=== PATIENT | female | born 1985 | race Caucasian/White ===

== ENCOUNTER 2017-10-20 12:04 | Inpatient (IN) | payer BC ==
[~2017-10-20] VITALS: Ht 167.6 cm; Wt 81.2 kg
[2017-10-20] MEDS ORDERED: LR 1,000 ML IV ONE (12:56)
[2017-10-20] MEDS ORDERED: LR 1,000 ML IV SCH (12:56)
[2017-10-20] MEDS ORDERED: OXYTOCIN/NORMAL SALINE 1,000 ML IV SCH ×2 (12:56→16:13)
[2017-10-20] MEDS ORDERED: NALBUPHINE HCL 10 MG/ML AMP IVP PRN (13:00)
[2017-10-20] MEDS ORDERED: fentaNYL CITRATE/PF 100 MCG/2 ML AMP ONE (13:10)
[2017-10-20] MEDS ORDERED: OXYTOCIN/NORMAL SALINE 1,000 ML IV ONE ×2 (13:16→16:13)
[2017-10-20] MEDS ORDERED: LR 500 ML IV ONE (14:09)
[2017-10-20 14:13] LABS: BASOPHILS % (AUTO) 0.5 % (0.0-2.0); EOSINOPHILS # (AUTO) 0.1 K/uL (0.0-0.4); EOSINOPHILS % (AUTO) 0.8 % (0.0-4.0); HEMATOCRIT 33.5 % (36-48); LYMPHOCYTES # (AUTO) 1.6 K/uL (1.0-5.5); LYMPHOCYTES % (AUTO) 19.8 % (20.5-51.5); MEAN CORPUSCULAR HEMOGLOBIN 28 pg (27-31); MEAN CORPUSCULAR HGB CONC 33 % (32-36); MEAN CORPUSCULAR VOLUME 84 fL (79.0-98.0); MONOCYTES # (AUTO) 0.5 K/uL (0.0-1.0); MONOCYTES % (AUTO) 6.9 % (1.7-9.3); NEUTROPHILS # (AUTO) 5.8 K/uL (1.8-7.7); PLATELET COUNT (AUTO) 225 K/uL (130-430); RED BLOOD CELL COUNT(AUTO) 4.01 MIL/uL (4.2-6.2); RED CELL DISTRIBUTION WIDTH 14.8 % (9.0-15.0)
[2017-10-20] MEDS ORDERED: FENT2mCg/mL-ROPIVA0.2%/NS EPID 150 ML EP SCH (14:15)
[2017-10-20 15:11] VITALS: BP_SYST 133
[2017-10-20] MEDS ORDERED: ACETAMINOPHEN 325 MG TABLET PO PRN (16:15)
[2017-10-20] MEDS ORDERED: OXYCODONE/ACETAMINOPHEN 5-325 TABLET PO PRN ×2 (16:15)
[2017-10-20] MEDS ORDERED: LANOLIN 7 GM OINT. TP PRN (16:15)
[2017-10-20] MEDS ORDERED: DOCUSATE SODIUM 100 MG CAPSULE PO PRN (16:15)
[2017-10-20] MEDS ORDERED: HYDROCORTISONE 0.5%, 28.35 GM TOPICAL CREAM TP PRN (16:15)
[2017-10-20] MEDS ORDERED: GLYCERIN/WITCH HAZEL (TUCKS PADS) TP PRN (16:15)
[2017-10-20] MEDS ORDERED: MEASLES,MUMPS&RUBELLA VACC/PF 12500 UNIT/0.5 ML VIAL SUBQ PRN (16:15)
[2017-10-20] MEDS ORDERED: RHO(D) IMMUNE GLOBULIN/MALTOSE 1500 UNITS/1.3 ML (WINHRO) IM PRN (16:15)
[2017-10-20] MEDS ORDERED: METHYLERGONOVINE MALEATE 0.2 MG TABLET PO PRN (16:15)
[2017-10-20] MEDS ORDERED: ANUSOL 1 EA SUPP.RECT (PREPARATION H) RC PRN (16:15)
[2017-10-20] MEDS ORDERED: DERMOPLAST SPRAY TP PRN (16:15)
[2017-10-20] MEDS ORDERED: SENNOSIDES/DOCUSATE SODIUM 1 TAB TABLET(SENOKOT-S) PO PRN (16:15)
[2017-10-20] MEDS ORDERED: IBUPROFEN 600 MG TABLET ONE (20:07)
[2017-10-20] MEDS ORDERED: TEMAZEPAM 15 MG CAPSULE PO PRN (21:00)
[2017-10-21] MEDS: IBUPROFEN 600 MG TABLET PO SCH ×3 (00:07→14:14)
[2017-10-21 08:17] LABS: BASOPHILS % (AUTO) 0.4 % (0.0-2.0); EOSINOPHILS # (AUTO) 0.1 K/uL (0.0-0.4); EOSINOPHILS % (AUTO) 0.7 % (0.0-4.0); HEMATOCRIT 29.6 % (36-48); HEMOGLOBIN 9.6 g/dL (12.0-16.0); LYMPHOCYTES # (AUTO) 1.8 K/uL (1.0-5.5); LYMPHOCYTES % (AUTO) 16.6 % (20.5-51.5); MEAN CORPUSCULAR HEMOGLOBIN 27 pg (27-31); MEAN CORPUSCULAR HGB CONC 33 % (32-36); MEAN CORPUSCULAR VOLUME 84 fL (79.0-98.0); MONOCYTES # (AUTO) 0.7 K/uL (0.0-1.0); MONOCYTES % (AUTO) 6.5 % (1.7-9.3); NEUTROPHILS # (AUTO) 8.3 K/uL (1.8-7.7); NEUTROPHILS % (AUTO) 75.8 % (40.0-70.0); PLATELET COUNT (AUTO) 194 K/uL (130-430); RED BLOOD CELL COUNT(AUTO) 3.53 MIL/uL (4.2-6.2); RED CELL DISTRIBUTION WIDTH 14.8 % (9.0-15.0); WHITE BLOOD COUNT (AUTO) 10.9 K/uL (4.8-10.8)
== END 2017-10-21 20:23 | disposition home or self-care (01) | DRG 775 ==
LOC: SPU 12:04
PROVIDERS: ADMIT Obstetrics & Gynecology; ATTEND Obstetrics & Gynecology
PROC: 10E0XZZ Delivery of Products of Conception, External Approach (ICD-10-PCS; principal; 2017-10-20)
PROC: 10907ZC Drainage of Amniotic Fluid, Therapeutic from Products of Conception, Via Natural or Artificial Opening (ICD-10-PCS; 2017-10-20)
PROC: 3E0S3BZ Introduction of Anesthetic Agent into Epidural Space, Percutaneous Approach (ICD-10-PCS; 2017-10-20)
PROC: 00HU33Z Insertion of Infusion Device into Spinal Canal, Percutaneous Approach (ICD-10-PCS; 2017-10-20)
DX: O41.03X0 Oligohydramnios, third trimester, not applicable or unspecified (principal); O69.81X0 Labor and delivery complicated by cord around neck, without compression, not applicable or unspecified; Z3A.39 39 weeks gestation of pregnancy; Z37.0 Single live birth
CPT/HCPCS: 36415; 85025; 86592; 86886; 86900; 86901; J2590; J3010; J7120

== ENCOUNTER 2017-11-17 16:15 | Emergency (ER) | payer BC ==
[~2017-11-17] VITALS: Ht 167.6 cm; Wt 71.7 kg
[2017-11-17 16:55] VITALS: BP_SYST 94
--- NOTE | 2017-11-17 17:10 | NUR ---
Patient had orders placed while in triage, before being placed into room.
--- NOTE | 2017-11-17 17:30 | NUR ---
Patient to ultrasound via wheelchair from triage. Patient will go to room after she has ultrasound.
[2017-11-17 17:35] LABS: HEMATOCRIT 32.5 % (36-48); HEMOGLOBIN 10.6 g/dL (12.0-16.0); MEAN CORPUSCULAR HEMOGLOBIN 27 pg (27-31); MEAN CORPUSCULAR HGB CONC 32 % (32-36); MEAN CORPUSCULAR VOLUME 84 fL (79.0-98.0); PLATELET COUNT (AUTO) 442 K/uL (130-430); RED BLOOD CELL COUNT(AUTO) 3.86 MIL/uL (4.2-6.2); RED CELL DISTRIBUTION WIDTH 15.7 % (9.0-15.0); WHITE BLOOD COUNT (AUTO) 17.2 K/uL (4.8-10.8)
--- NOTE | 2017-11-17 17:55 | NUR ---
Patient placed into bed 7 by java [email or web address] technical lead.
--- NOTE | 2017-11-17 17:55 | NUR ---
Patient to ER via triage with c/o syncope after taking Cytotec. Patient is awake, alert and oriented in no acute distress. Patient slightly tachycardic, but vital signs are otherwise stable. Respirations even and unlabored, skin warm and dry to touch. Patient resting quietly in position of comfort with friend at bedside. Awaiting evaluation by ER MD/REFRIGERATOR CABINETMAKER, will continue to observe and assess.
--- NOTE | 2017-11-17 17:55 | NUR ---
Patient back from ultrasound in stable condition.
[2017-11-17 17:57] LABS: BAND % (MANUAL) 9 % (0-6); BASOPHILS % (MANUAL) 0 % (0-2); EOSINOPHILS % (MANUAL) 0 % (0-7); LYMPHOCYTES % (MANUAL) 3 % (20-46); MONOCYTES % (MANUAL) 3 % (0-11)
--- NOTE | 2017-11-17 18:00 | NUR ---
Patient aware that we need urine sample from her, states that she just emptied her bladder prior to having ultrasound, and that she does not feel like she needs to void at this time.
--- NOTE | 2017-11-17 18:30 | NUR ---
Dr Gant at bedside to evaluate patient.
[2017-11-17 18:55] VITALS: BP_SYST 97
--- NOTE | 2017-11-17 18:55 | NUR ---
Patient given written and verbal discharge instructions and verbalizes understanding. ER MD discussed with patient the results and treatment provided. Patient in stable condition. ID arm band removed. No RX given. Patient educated on pain management and to follow up with PMD. Pain Scale 0. Opportunity for questions provided and answered. Patient left ER ambulating with slow, steady gait in no acute distress with friend at side.
== END 2017-11-17 18:55 | disposition home or self-care (01) ==
LOC: SED 16:15
DX: O72.2 Delayed and secondary postpartum hemorrhage (principal)
CPT/HCPCS: 36415; 76830-TC; 76857; 84702-TC; 85007; 85027; 86900; 86901; 99285

== ENCOUNTER 2018-03-10 05:45 | Day surgery (SDC) | payer BC ==
[2018-03-09 09:26] LABS: BASOPHILS # (AUTO) 0.1 K/uL (0.0-0.2); BASOPHILS % (AUTO) 1.3 % (0.0-2.0); EOSINOPHILS # (AUTO) 0.2 K/uL (0.0-0.4); EOSINOPHILS % (AUTO) 3.5 % (0.0-4.0); HEMATOCRIT 38.8 % (36-48); HEMOGLOBIN 12.6 g/dL (12.0-16.0); LYMPHOCYTES # (AUTO) 2.1 K/uL (1.0-5.5); LYMPHOCYTES % (AUTO) 42.8 % (20.5-51.5); MEAN CORPUSCULAR HEMOGLOBIN 27 pg (27-31); MEAN CORPUSCULAR HGB CONC 33 % (32-36); MEAN CORPUSCULAR VOLUME 83 fL (79.0-98.0); MONOCYTES # (AUTO) 0.3 K/uL (0.0-1.0); MONOCYTES % (AUTO) 6.9 % (1.7-9.3); NEUTROPHILS # (AUTO) 2.2 K/uL (1.8-7.7); NEUTROPHILS % (AUTO) 45.5 % (40.0-70.0); PLATELET COUNT (AUTO) 311 K/uL (130-430); RED BLOOD CELL COUNT(AUTO) 4.68 MIL/uL (4.2-6.2); RED CELL DISTRIBUTION WIDTH 15.1 % (9.0-15.0); WHITE BLOOD COUNT (AUTO) 4.9 K/uL (4.8-10.8)
[2018-03-09 09:32] LABS: BILIRUBIN,URINE NEGATIVE (NEGATIVE); BLOOD, URINE NEGATIVE (NEGATIVE); CLARITY/URINE CLEAR (CLEAR); COLOR,URINE YELLOW (YELLOW); GLUCOSE,URINE NEGATIVE (NEGATIVE); KETONES,URINE NEGATIVE (NEGATIVE); LEUKOCYTE ESTERASE ,URINE NEGATIVE (NEGATIVE); NITRITE, URINE NEGATIVE (NEGATIVE); PH,URINE 7.5 (5.0-8.0); PROTEIN URINE NEGATIVE (NEGATIVE); UROBILINOGEN,URINE 0.2 (0.2-1.0)
[2018-03-09 09:43] LABS: CALCIUM 8.7 mg/dL (8.4-11.0); CREATININE 0.73 mg/dL (0.55-1.30); POTASSIUM 4.2 mmol/L (3.5-5.1)
[2018-03-09 09:49] LABS: TOTAL BILIRUBIN 0.4 mg/dL (0.0-1.0)
[~2018-03-10] VITALS: Ht 167.6 cm; Wt 66.7 kg
[2018-03-10] MEDS ORDERED: MEPERIDINE HCL/PF 100 MG/ML AMP IM ONE (07:25)
[2018-03-10] MEDS ORDERED: CEFAZOLIN 2 GM IVPB PREMIX 50 ML IV ONE (07:25)
[2018-03-10] MEDS ORDERED: SEVOFLURANE 15 MIN GAS INH ONE (07:25)
[2018-03-10] MEDS ORDERED: PROPOFOL 200MG/ 20ML VIAL (DIPRIVAN) IV ONE (07:25)
[2018-03-10] MEDS ORDERED: LR 1,000 ML IV.SOLN IV ONE (07:25)
[2018-03-10] MEDS ORDERED: KETOROLAC TROMETHAMINE 30 MG VIAL IVP ONE (07:25)
[2018-03-10] MEDS ORDERED: fentaNYL CITRATE 250 MCG/5 ML AMP IV ONE (07:25)
[2018-03-10] MEDS ORDERED: ROCURONIUM BROMIDE 10 MG/ML (ZEMURON) IV ONE (07:25)
[2018-03-10] MEDS ORDERED: ONDANSETRON HCL 4 MG/2 ML VIAL IVP ONE (07:25)
[2018-03-10] MEDS ORDERED: NEOSTIGMINE METHYLSULFATE 1 MG/ML, 10 ML VIAL IVP ONE (07:25)
[2018-03-10] MEDS ORDERED: MIDAZOLAM HCL 5 MG/5 ML VIAL IVP ONE (07:25)
[2018-03-10] MEDS ORDERED: GLYCOPYRROLATE 0.2 MG/ML VIAL IJ ONE (07:25)
[2018-03-10] MEDS ORDERED: DEXAMETHASONE SOD PHOSPHATE 4 MG/ML VIAL IVP ONE (07:25)
[2018-03-10] MEDS ORDERED: ONDANSETRON HCL 4 MG/2 ML VIAL IVP PRN ×2 (08:15→10:00)
[2018-03-10] MEDS ORDERED: KETOROLAC TROMETHAMINE 30 MG VIAL IVP PRN (08:15)
[2018-03-10] MEDS ORDERED: fentaNYL CITRATE/PF 100 MCG/2 ML AMP IVP PRN (08:15)
[2018-03-10] MEDS ORDERED: PROMETHAZINE HCL 25 MG/ML AMP IM PRN (10:00)
[2018-03-10] MEDS ORDERED: OXYCODONE/ACETAMINOPHEN 5-325 TABLET PO PRN (10:00)
[2018-03-10] MEDS: fentaNYL CITRATE/PF 100 MCG/2 ML AMP IVP PRN ×2 (10:40→10:59)
[2018-03-10] MEDS ORDERED: fentaNYL CITRATE/PF 100 MCG/2 ML AMP ONE (10:42)
[2018-03-10 11:24] VITALS: BP_SYST 110
[2018-03-10] MEDS ORDERED: OXYCODONE/ACETAMINOPHEN 5-325 TABLET ONE (11:50)
== END 2018-03-10 14:30 | disposition home or self-care (01) ==
LOC: SMU 05:45 → SDS 05:45
PROVIDERS: ATTEND Obstetrics & Gynecology
DX: N72 Inflammatory disease of cervix uteri (principal); Z79.899 Other long term (current) drug therapy
CPT/HCPCS: 36415; 58571; 80053; 81003; 84703; 85025; 86886; 86900; 86901; 88307; C1727; J3010; J7120; E0190; J0690; J1100; J1885; J2175; J2250; J2405; J2704; J2710; J3490